=== PATIENT | male | born 1955 | race Caucasian/White ===

== ENCOUNTER 2016-11-08 15:47 | Inpatient (IN) | payer OTHER ==
[~2016-11-08] VITALS: Ht 188 cm; Wt 61.2 kg
--- NOTE | ~2016-11-08 | EKG ---
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
[~2016-11-08 15:47] MED LIST: AUGMENTIN 875875 MG PO; FLAGYL500 MG PO; HALDOL DEC100 MG/1 M IM; HALDOL INJ; HALOPERIDOL 5 MG5 MG PO; HYDROCODON-ACE1 EAC7 PO; IBUPROFEN 600600 M1 PO; LISINOPRIL20 MG PO; NORCO 5-325 TA1 EACH PO; PROTONIX40 M1 PO; TRILEPTAL600 MG PO; TYLENOL325 MG PO; ZYPREXA20 MG PO
[2016-11-08 15:49] VITALS: BP 159/101
[2016-11-08 16:53] LABS: ABSOLUTE NEUTROPHILS 2.7 thou/uL (1.4-8.2); BASOPHILS 0.5 % (0.0-2.0); EOSINOPHILS 0.4 % (0.0-3.0); HEMATOCRIT 29.5 % (42.0-52.0); HEMOGLOBIN 9.8 gm/dL (14.0-18.0); LYMPHOCYTES 28.1 % (24.0-44.0); MCH 28.1 pg (26.0-34.0); MCHC 33.2 g/dL (28.0-37.0); MCV 84.4 fL (80.0-100.0); MONOCYTES 8.7 % (1.0-8.0); PLATELET COUNT 147 thou/uL (150-400); POLYS 62.3 % (36.0-66.0); RBC 3.49 mil/uL (4.50-6.00); RDW 17.3 % (10.5-14.5); WBC 4.3 thou/uL (4.0-11.0)
[2016-11-08 16:54] LABS: MANUAL DIFF NO
[2016-11-08 17:03] LABS: ANION GAP 10 mmol/L (7-16); BUN 11 mg/dL (7-18); CALCIUM 9.5 mg/dL (8.5-10.1); CHLORIDE 104 mmol/L (98-107); CO2 26 mmol/L (21-32); CREATININE 0.9 mg/dL (0.7-1.3); GLUCOSE 125 mg/dL (74-106); POTASSIUM 3.2 mmol/L (3.5-5.1); SODIUM 140 mmol/L (136-145)
[2016-11-08 17:09] LABS: ALBUMIN 2.6 g/dL (3.4-5.0); ALKALINE PHOSPHATASE 399 U/L (46-116); SGOT 37 U/L (15-37); SGPT 28 U/L (30-65); TOTAL BILIRUBIN 0.5 mg/dL (<0.1-1.0); TOTAL PROTEIN 6.8 g/dL (6.4-8.2); TROPONIN-I < 0.04 ng/mL (<0.04-0.07)
[2016-11-09 00:06] VITALS: BP 148/105
[2016-11-09 04:32] VITALS: BP 143/100
[2016-11-09 07:14] VITALS: BP 168/96
[2016-11-09 11:12] VITALS: BP 148/90
[2016-11-09 15:08] VITALS: BP 122/78
[2016-11-09 20:11] VITALS: BP 145/97
[2016-11-10 04:03] VITALS: BP 150/87
[2016-11-10 06:33] LABS: HEMATOCRIT 26.9 % (42.0-52.0); HEMOGLOBIN 8.7 gm/dL (14.0-18.0); MCH 27.9 pg (26.0-34.0); MCHC 32.5 g/dL (28.0-37.0); MCV 85.8 fL (80.0-100.0); RBC 3.13 mil/uL (4.50-6.00); RDW 17.9 % (10.5-14.5); WBC 4.5 thou/uL (4.0-11.0)
[2016-11-10 06:44] LABS: ALBUMIN 2.1 g/dL (3.4-5.0); CALCIUM 8.5 mg/dL (8.5-10.1); CREATININE 0.8 mg/dL (0.7-1.3); PHOSPHORUS 2.9 mg/dL (2.5-4.9); POTASSIUM 3.7 mmol/L (3.5-5.1)
[2016-11-10 07:24] VITALS: BP 135/75
[2016-11-10 11:08] VITALS: BP 135/75
== END 2016-11-10 12:08 | DRG 175 ==
LOC: ER 15:47 → EROBS 18:09 → 4W 18:09
PROVIDERS: Hospitalist; Physician Assistant
DX: I26.99 Other pulmonary embolism without acute cor pulmonale (principal); E43 Unspecified severe protein-calorie malnutrition; I82.413 Acute embolism and thrombosis of femoral vein, bilateral; Z68.1 Body mass index [BMI] 19.9 or less, adult; C17.0 Malignant neoplasm of duodenum; C78.7 Secondary malignant neoplasm of liver and intrahepatic bile duct; E86.0 Dehydration; E87.6 Hypokalemia; F17.210 Nicotine dependence, cigarettes, uncomplicated; Z66 Do not resuscitate; J44.9 Chronic obstructive pulmonary disease, unspecified; Z98.52 Vasectomy status; Z90.49 Acquired absence of other specified parts of digestive tract
CPT/HCPCS: 10045

== ENCOUNTER → 2017-01-15 | Outpatient (CLI) | payer OTHER | LOC: RAD 16:01 | DX: J18.9 Pneumonia, unspecified organism (principal) ==

== ENCOUNTER 2017-02-09 04:43 | Emergency (ER) | payer OTHER ==
[~2017-02-09] VITALS: Ht 188 cm; Wt 73.5 kg
--- NOTE | ~2017-02-09 | EKG ---
[place] [address] [facility] [place] [place] [address] ELECTROCARDIOGRAM REPORT Name: BRANDTARTHUR KEYON [facility] [id number] Admission: 02/09/17 Attend Phys: Discharge: 02/09/17 Date of : 59 Report #: [id number] THIS REPORT FOR: //name// [facility] ED Test Date: 2017-02-09 Test Time: 05:01:40 Pat Name: ARTHUR CARLTON Department: Room: Gender: Fisher Net: LILIBETH : 1955 Requested By: Jean Marie Mortensen Order Number: [id number] MD: Fadi Arcos Measurements Intervals [place] Rate: 76 P: 51 [place]: 177 QRS: -80 QRSD: 145 T: 64 QT: 419 QTc: 472 Interpretive Statements Sinus rhythm RBBB and LAFB Compared to ECG 11/08/2016 16:06:25 No significant changes Electronically Signed On 02-10-2017 13:34:17 CDT by Fadi Arcos [email or web address] <ELECTRONICALLY SIGNED> By: Fadi Arcos MD, [facility] 02/10/17 [id number] Fadi Arcos MD, FACC /EPI
[2017-02-09] MEDS ORDERED: MS CONTIN15 MG PO (05:12)
[2017-02-09] MEDS ORDERED: ONDANSETRON HCL4 M2 PO (05:14)
[2017-02-09 06:00] LABS: ABSOLUTE NEUTROPHILS 4.5 thou/uL (1.4-8.2); BASOPHILS 0.3 % (0.0-2.0); EOSINOPHILS 1.1 % (0.0-3.0); HEMATOCRIT 34.5 % (42.0-52.0); LYMPHOCYTES 14.9 % (24.0-44.0); MCH 27.2 pg (26.0-34.0); MCV 84.9 fL (80.0-100.0); MONOCYTES 9.9 % (1.0-8.0); PLATELET COUNT 148 thou/uL (150-400); POLYS 73.8 % (36.0-66.0); RBC 4.06 mil/uL (4.50-6.00); RDW 24.8 % (10.5-14.5); WBC 6.1 thou/uL (4.0-11.0)
[2017-02-09 06:11] LABS: ANION GAP 7 mmol/L (7-16); BUN 12 mg/dL (7-18); CALCIUM 9.7 mg/dL (8.5-10.1); CHLORIDE 103 mmol/L (98-107); CO2 32 mmol/L (21-32); CREATININE 0.9 mg/dL (0.7-1.3); GLUCOSE 125 mg/dL (74-106); POTASSIUM 3.2 mmol/L (3.5-5.1); SODIUM 142 mmol/L (136-145)
[2017-02-09 06:15] LABS: MANUAL DIFF NO
[2017-02-09 06:21] LABS: ALBUMIN 3.1 g/dL (3.4-5.0); ALKALINE PHOSPHATASE 505 U/L (46-116); SGOT 47 U/L (15-37); SGPT 38 U/L (30-65); TOTAL BILIRUBIN 0.4 mg/dL (<0.1-1.0); TOTAL PROTEIN 7.3 g/dL (6.4-8.2); TROPONIN-I < 0.04 ng/mL (<0.04-0.07)
[2017-02-09 07:07] LABS: URINE BILIRUBIN NEGATIVE (Negative); URINE BLOOD NEGATIVE (Negative); URINE COLOR YELLOW; URINE GLUCOSE-RANDOM* NEGATIVE (Negative); URINE KETONES NEGATIVE (Negative); URINE LEUKOCYTES-REFLEX NEGATIVE (Negative); URINE PROTEIN (DIPSTICK) NEGATIVE (Negative); URINE UROBILINOGEN 0.2 E.U./dl (0.2-1.0)
== END 2017-02-09 07:44 | disposition home or self-care (01) ==
LOC: ER 04:43
PROVIDERS: Emergency Medicine
DX: E87.6 Hypokalemia (principal); F25.9 Schizoaffective disorder, unspecified; F17.210 Nicotine dependence, cigarettes, uncomplicated; F10.99 Alcohol use, unspecified with unspecified alcohol-induced disorder; Z90.49 Acquired absence of other specified parts of digestive tract

== ENCOUNTER 2017-02-25 12:47 | Emergency (ER) | payer OTHER ==
[~2017-02-25] VITALS: Ht 188 cm; Wt 72.6 kg
--- NOTE | ~2017-02-25 | EKG ---
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: : 1955 Requested By: Noah Woodruff Order Number: [id number] MD: Jamari Vela Measurements Intervals [place] Rate: 90 P: 90 [place]: 172 QRS: -82 QRSD: 146 T: 70 QT: 407 QTc: 498 Interpretive Statements Sinus rhythm Atrial premature complex RBBB and LAFB Baseline wander in lead(s) V5 Compared to ECG 02/09/2017 05:01:40 Atrial premature complex(es) now present Electronically Signed On 02-25-2017 16:38:26 CDT by Jamari Vela [email or web address] <ELECTRONICALLY SIGNED> By: Jamari Vela MD 02/25/17 1638 10 131 Jamari Vela MD /EPI
[~2017-02-25 12:47] MED LIST changes: +MS CONTIN15 MG PO; +ONDANSETRON HCL4 M2 PO
[2017-02-25 14:29] LABS: HEMATOCRIT 33.8 % (42.0-52.0); HEMOGLOBIN 10.7 gm/dL (14.0-18.0); MANUAL DIFF YES; MCHC 31.6 g/dL (28.0-37.0); MCV 85.6 fL (80.0-100.0); PLATELET COUNT 150 thou/uL (150-400); RBC 3.95 mil/uL (4.50-6.00); RDW 22.1 % (10.5-14.5); WBC 5.7 thou/uL (4.0-11.0)
[2017-02-25 14:30] LABS: ANION GAP 4 mmol/L (7-16); BUN 16 mg/dL (7-18); CALCIUM 9.2 mg/dL (8.5-10.1); CHLORIDE 100 mmol/L (98-107); CO2 29 mmol/L (21-32); CREATININE 0.8 mg/dL (0.7-1.3); GLUCOSE 111 mg/dL (74-106); POTASSIUM 3.5 mmol/L (3.5-5.1); SODIUM 133 mmol/L (136-145)
[2017-02-25 14:39] LABS: TROPONIN-I < 0.04 ng/mL (<0.04-0.07)
[2017-02-25 14:56] LABS: ABSOLUTE NEUTROPHILS 4.3 thou/uL (1.4-8.2); TOTAL CELL COUNT 100
[2017-02-25 14:57] LABS: ANISOCYTOSIS 2+; HYPOCHROMASIA SLIGHT; POLYCHROMASIA OCCASIONAL
== END 2017-02-25 16:24 | disposition home or self-care (01) ==
LOC: ER 12:47
PROVIDERS: Nurse Practitioner
DX: R06.00 Dyspnea, unspecified (principal); R06.6 Hiccough; F17.210 Nicotine dependence, cigarettes, uncomplicated; F10.99 Alcohol use, unspecified with unspecified alcohol-induced disorder; Z86.59 Personal history of other mental and behavioral disorders; Z98.890 Other specified postprocedural states